=== PATIENT | male | born 1965 | race African-American/Black ===

== ENCOUNTER 2022-02-11 20:42 | Inpatient (IN) | payer MEDICARE, MEDICAID ==
[~2022-02-11 20:42] MED LIST: Iopamidol-370 76% 500 ML 1 ML ONE
[2022-02-11] MEDS ORDERED: Rocuronium Bromide 10 MG/ML (10ML VIAL) ONE ×3 (20:45→22:26)
[2022-02-11] MEDS ORDERED: Midazolam HCl 5 mg/ml Vial ONE (20:45)
[2022-02-11 21:00] LABS: Hemoglobin 12.9 g/dL (14.0-18.0); Mean Corpuscular HGB CONC 33.2 g/dL (32.0-36.0); Mean Corpuscular Hemoglobin 35.7 pg (27.0-31.0); Mean Platelet Volume 10.7 fL (7.4-10.4); Platelet Count 169 thou/uL (130-400); RBC Distribution Width 15.8 % (11.5-14.5)
[2022-02-11 21:07] LABS: Prothrombin Time 13.2 sec (12.0-14.7)
[2022-02-11 21:13] LABS: #Eosinphils 0.1 thou/uL (0.0-0.7); #Lymphocytes 1.9 thou/uL (1.20-3.40); #Monocytes 0.3 thou/uL (0.11-0.59); #Neutrophils 1.8 thou/uL (1.40-6.50); %Basophils 0.7 % (0.0-1.0); %Eosinophils 1.4 % (0.0-10.0); %Lymphocytes 45.7 % (21.0-51.0); %Monocytes 8.1 % (0.0-10.0); %Neutrophils 44.1 % (42.0-75.0); Large Platelets SLIGHT; MDiff Complete? YES; Macrocytosis SLIGHT = 6-15 cells (100X) (0-5/hpf); Platelet Morphology Comment Appears Adequate
[2022-02-11 21:21] LABS: Lactic Acid 3.1 mmol/L (0.5-2.2)
[2022-02-11 21:25] LABS: ALT (SGPT) 7 U/L (8-55); AST (SGOT) 18 U/L (5-34); Albumin 4.3 g/dL (3.5-5.0); Alkaline Phosphatase 85 U/L (40-110); Anion Gap 16 mmol/L (10-20); BUN (Urea Nitrogen) 16 mg/dL (8.4-25.7); Bilirubin, Total 0.8 mg/dL (0.2-1.2); CK (CPK) 143 U/L (30-200); Calc. Creatinine Clearance 0 mL/min (70-130); Carbon Dioxide 25 mmol/L (22-29); Chloride 106 mmol/L (98-107); Globulin 4.6 g/dL (2.4-3.5); Glucose 109 mg/dL (70-105); Potassium 3.8 mmol/L (3.5-5.1); Protein, Total 8.9 g/dL (6.0-8.3); Sodium 143 mmol/L (136-145)
[2022-02-11 21:26] LABS: Acetaminophen Less than 10.0 mcg/mL (10.0-30.0); Alcohol Less than 10 mg/dL (Less than 10); Magnesium 1.7 mg/dL (1.6-2.6); Salicylate Less than 8.0 mg/dL (15.0-30.0)
[2022-02-11 21:27] LABS: Actual Bicarbonate (HCO3a) 23.5 mEq/L (22-28); Analyzer IN Cardio ER; Base Excess (BEa) 0.8 mEq/L (-2.0 to +3.0); CO2 Tension 31.6 mmHg (35.0-45.0); Calcium, Ionized (arterial) 1.18 mmol/L (1.12-1.30); Carboxyhemoglobin (COHb) 3.3 gm% (0.0-3.0); Hemoglobin (Hb) 12.7 g/dL (14.0-18.0); O2 Tension (PaO2), arterial 276.9 mmHg (80.0-100.0); Potassium - ABG Lab 3.23 mmol/L (3.70-5.30); pH, Arterial 7.49 (7.35-7.45)
[2022-02-11] MEDS ORDERED: Piperacillin/Tazobactam 3.375 GM VIAL ONE (21:27)
[2022-02-11 21:37] LABS: Puncture Site LRA
[2022-02-11] MEDS ORDERED: Heparin 10,000 UNITS/ 10 ML VIAL ONE (22:00)
[2022-02-11] MEDS ORDERED: ePHEDrine 50 MG/ML VIAL ONE (22:26)
[2022-02-11] MEDS ORDERED: PHENYLEPHRINE-NS 100 MCG/ML 10 ML SYRINGE ONE (22:26)
[2022-02-11] MEDS ORDERED: niCARdipine 25 MG in Sodium Chloride 0.9% 250 ML 250 ML IVPB PRN (22:37)
[2022-02-11] MEDS ORDERED: Mag-Al 1200 mg/1200 mg/30 ML UDCUP PO PRN (22:37)
[2022-02-11] MEDS ORDERED: Norepinephrine 4 MG/4 ML VIAL ONE (22:48)
[2022-02-11] MEDS ORDERED: Electrolyte Replacement Protocol 1 EACH FS SCH (23:45)
[2022-02-12 00:14] LABS: Actual Bicarbonate (HCO3a) 18.6 mEq/L (22-28); Base Excess (BEa) -5.3 mEq/L (-2.0 to +3.0); CO2 Tension 31.7 mmHg (35.0-45.0); Hemoglobin (Hb) 12.9 g/dL (14.0-18.0); O2 Tension (PaO2), arterial 129.5 mmHg (80.0-100.0); Potassium - ABG Lab 3.16 mmol/L (3.70-5.30); pH, Arterial 7.39 (7.35-7.45)
[2022-02-12 00:15] LABS: Puncture Site Arterial Line
[2022-02-12 00:17] LABS: ALV-art Gradient 187.375 mmHg (0-20)
[2022-02-12 00:28] LABS: Hemoglobin 12.2 g/dL (14.0-18.0); Mean Corpuscular HGB CONC 32.5 g/dL (32.0-36.0); Mean Corpuscular Hemoglobin 35.4 pg (27.0-31.0); Platelet Count 134 thou/uL (130-400); RBC Distribution Width 15.9 % (11.5-14.5); Red Blood Cell (RBC) Count 3.45 mill/uL (4.70-6.10); White Blood Cell (WBC) Count 5.7 thou/uL (4.8-10.8)
[2022-02-12] MEDS: Sodium Chloride 0.9% 1,000 ML IV SCH ×2 (00:49→08:46)
[2022-02-12 01:03] LABS: #Lymphocytes 1.2 thou/uL (1.20-3.40); #Monocytes 0.3 thou/uL (0.11-0.59); #Neutrophils 4.2 thou/uL (1.40-6.50); %Basophils 0.3 % (0.0-1.0); %Eosinophils 0.8 % (0.0-10.0); %Lymphocytes 20.8 % (21.0-51.0); %Monocytes 4.6 % (0.0-10.0); %Neutrophils 73.5 % (42.0-75.0); Large Platelets SLIGHT; MDiff Complete? YES; Macrocytosis SLIGHT = 6-15 cells (100X) (0-5/hpf); Platelet Morphology Comment Appears Adequate
[2022-02-12 01:26] LABS: Anion Gap 14 mmol/L (10-20); BUN (Urea Nitrogen) 15 mg/dL (8.4-25.7); Calc. Creatinine Clearance 102 mL/min (70-130); Calcium 8.1 mg/dL (7.8-10.44); Carbon Dioxide 18 mmol/L (22-29); Chloride 111 mmol/L (98-107); Glucose 124 mg/dL (70-105); Potassium 3.2 mmol/L (3.5-5.1); Sodium 140 mmol/L (136-145)
[2022-02-12] MEDS ORDERED: Morphine 2 MG/ML VIAL SLOW IVP PRN (02:45)
[2022-02-12] MEDS ORDERED: DISCONTINUE PREVIOUS NARCOTIC PAIN MEDICATIONS AND BENZODIAZEPINES FS SCH (02:45)
[2022-02-12] MEDS ORDERED: Fentanyl BOLUS 250 ML IVPB PRN (02:45)
[2022-02-12] MEDS ORDERED: Propofol BOLUS 1,000 MG/100 ML VIAL IV PRN (02:45)
[2022-02-12] MEDS: fentaNYL Citrate-0.9 % NaCl/PF 100 ML IV SCH (02:58)
[2022-02-12] MEDS ORDERED: Electrolyte Replacement Protocol 1 EACH FS SCH (03:15)
[2022-02-12] MEDS: Communication Order-Pharmacy FS SCH ×2 (04:36→22:37)
[2022-02-12 05:08] LABS: Hemoglobin 11.6 g/dL (14.0-18.0); Mean Corpuscular HGB CONC 33.4 g/dL (32.0-36.0); Mean Corpuscular Hemoglobin 35.9 pg (27.0-31.0); Mean Platelet Volume 10.9 fL (7.4-10.4); Platelet Count 139 thou/uL (130-400); RBC Distribution Width 15.8 % (11.5-14.5); Red Blood Cell (RBC) Count 3.24 mill/uL (4.70-6.10); White Blood Cell (WBC) Count 4.6 thou/uL (4.8-10.8)
[2022-02-12] MEDS ORDERED: Magnesium 2 GM/50 ML(in water) 2 GM in Premix Bag 1 BAG IVPB SCH (05:30)
[2022-02-12 05:37] LABS: Cardiac Risk 2.3 (Less than 4.5)
[2022-02-12 05:50] LABS: Large Platelets SLIGHT; MDiff Complete? YES; Macrocytosis SLIGHT = 6-15 cells (100X) (0-5/hpf); Platelet Morphology Comment Appears Adequate
[2022-02-12 05:51] LABS: #Lymphocytes 0.9 thou/uL (1.20-3.40); #Monocytes 0.3 thou/uL (0.11-0.59); #Neutrophils 3.4 thou/uL (1.40-6.50); %Basophils 0.2 % (0.0-1.0); %Eosinophils 0.3 % (0.0-10.0); %Lymphocytes 20.1 % (21.0-51.0); %Monocytes 5.6 % (0.0-10.0); %Neutrophils 73.9 % (42.0-75.0)
[2022-02-12 06:09] LABS: SARS-CoV-2 NAA Rapid Test Not Detected (NotDetected)
[2022-02-12] MEDS: Potassium Chloride 20 MEQ in Premix Bag 1 BAG IVPB SCH ×2 (06:10→08:45)
[2022-02-12] MEDS: Famotidine/PF 20 mg/2ml Vial SLOW IVP SCH ×2 (08:45→21:00)
[2022-02-12] MEDS ORDERED: Enoxaparin Sodium 30 MG/0.3 ML SYRINGE SC SCH (09:00)
[2022-02-12] MEDS ORDERED: Electrolyte Replacement Protocol FS PRN (16:30)
[2022-02-12] MEDS: Labetalol HCl 100 MG/20 ML VIAL SLOW IVP PRN (17:28)
[2022-02-12] MEDS ORDERED: Atorvastatin Calcium 40 MG TAB PO SCH (21:00)
[2022-02-12] MEDS: hydrALAZINE 20 MG/ML VIAL SLOW IVP PRN (21:23)
[2022-02-13] MEDS: fentaNYL Citrate-0.9 % NaCl/PF 100 ML IV SCH (04:15)
[2022-02-13] MEDS: Sodium Chloride 0.9% 1,000 ML IV SCH ×3 (05:57→23:09)
[2022-02-13 07:30] LABS: Actual Bicarbonate (HCO3a) 21.7 mEq/L (22-28); Base Excess (BEa) -2.1 mEq/L (-2.0 to +3.0); CO2 Tension 33.7 mmHg (35.0-45.0); Calcium, Ionized (arterial) 1.11 mmol/L (1.12-1.30); Carboxyhemoglobin (COHb) 0.4 gm% (0.0-3.0); Hemoglobin (Hb) 11.3 g/dL (14.0-18.0); O2 Tension (PaO2), arterial 99.1 mmHg (80.0-100.0); Potassium - ABG Lab 3.49 mmol/L (3.70-5.30); pH, Arterial 7.43 (7.35-7.45)
[2022-02-13 07:33] LABS: ALV-art Gradient 143.975 mmHg (0-20); Puncture Site RRA
[2022-02-13] MEDS ORDERED: Aspirin 300 MG Suppository PR SCH (09:00)
[2022-02-13] MEDS ORDERED: Aspirin 325 mg Enteric Coated Tablet PO SCH (09:00)
[2022-02-13] MEDS: Atorvastatin Calcium 40 MG TAB PO SCH (09:47)
[2022-02-13] MEDS: Scopolamine 1.5 mg/72 hour Patch TD SCH (09:47)
[2022-02-13] MEDS: Famotidine/PF 20 mg/2ml Vial SLOW IVP SCH ×2 (09:47→20:22)
[2022-02-13] MEDS: Lopinavir/Ritonavir 200-50mg TAB PO SCH ×2 (09:48→20:23)
[2022-02-13] MEDS: Ezetimibe 10 MG TAB PO SCH (09:50)
[2022-02-13] MEDS: hydrALAZINE 20 MG/ML VIAL SLOW IVP PRN (13:05)
[2022-02-13] MEDS ORDERED: Potassium Chloride 20 MEQ in Premix Bag 1 BAG IVPB SCH (17:38)
[2022-02-13 18:12] LABS: ALT (SGPT) Less than 7 U/L (8-55); AST (SGOT) 24 U/L (5-34); Albumin 3.3 g/dL (3.5-5.0); Alkaline Phosphatase 66 U/L (40-110); Anion Gap 10 mmol/L (10-20); BUN (Urea Nitrogen) 8 mg/dL (8.4-25.7); Bilirubin, Total 0.8 mg/dL (0.2-1.2); Calc. Creatinine Clearance 85 mL/min (70-130); Calcium 8.3 mg/dL (7.8-10.44); Carbon Dioxide 22 mmol/L (22-29); Chloride 108 mmol/L (98-107); Globulin 3.9 g/dL (2.4-3.5); Glucose 95 mg/dL (70-105); Magnesium 1.7 mg/dL (1.6-2.6); Potassium 3.6 mmol/L (3.5-5.1); Protein, Total 7.2 g/dL (6.0-8.3); Sodium 136 mmol/L (136-145)
[2022-02-13] MEDS: Acetaminophen 325 MG TAB PO PRN (18:15)
[2022-02-13] MEDS: Communication Order-Pharmacy FS SCH (20:25)
[2022-02-14] MEDS: Acetaminophen 325 MG TAB PO PRN (02:49)
[2022-02-14] MEDS: hydrALAZINE 20 MG/ML VIAL SLOW IVP PRN ×2 (02:50→08:05)
[2022-02-14 03:35] LABS: #Lymphocytes 1.1 thou/uL (1.20-3.40); #Monocytes 0.5 thou/uL (0.11-0.59); #Neutrophils 4.2 thou/uL (1.40-6.50); %Basophils 0.2 % (0.0-1.0); %Eosinophils 0.7 % (0.0-10.0); %Lymphocytes 19.1 % (21.0-51.0); %Monocytes 7.7 % (0.0-10.0); %Neutrophils 72.3 % (42.0-75.0); Hemoglobin 11.5 g/dL (14.0-18.0); Mean Corpuscular HGB CONC 32.6 g/dL (32.0-36.0); Mean Platelet Volume 10.6 fL (7.4-10.4); Platelet Count 125 thou/uL (130-400); RBC Distribution Width 15.8 % (11.5-14.5); Red Blood Cell (RBC) Count 3.28 mill/uL (4.70-6.10); White Blood Cell (WBC) Count 5.8 thou/uL (4.8-10.8)
[2022-02-14 03:54] LABS: Anion Gap 14 mmol/L (10-20); BUN (Urea Nitrogen) 7 mg/dL (8.4-25.7); Calc. Creatinine Clearance 107 mL/min (70-130); Calcium 8.4 mg/dL (7.8-10.44); Carbon Dioxide 18 mmol/L (22-29); Chloride 109 mmol/L (98-107); Glucose 103 mg/dL (70-105); Potassium 3.6 mmol/L (3.5-5.1); Sodium 137 mmol/L (136-145)
[2022-02-14 07:48] LABS: Actual Bicarbonate (HCO3a) 20.5 mEq/L (22-28); Base Excess (BEa) -3.3 mEq/L (-2.0 to +3.0); CO2 Tension 33.6 mmHg (35.0-45.0); O2 Tension (PaO2), arterial 147.7 mmHg (80.0-100.0)
[2022-02-14 07:49] LABS: Calcium, Ionized (arterial) 1.16 mmol/L (1.12-1.30); Hemoglobin (Hb) 13.9 g/dL (14.0-18.0); Potassium - ABG Lab 3.68 mmol/L (3.70-5.30); Puncture Site RRA
[2022-02-14] MEDS: Amlodipine 10 MG TAB PO SCH (08:05)
[2022-02-14] MEDS: Ezetimibe 10 MG TAB PO SCH (08:05)
[2022-02-14] MEDS: Famotidine/PF 20 mg/2ml Vial SLOW IVP SCH ×2 (08:05→21:11)
[2022-02-14] MEDS: Atorvastatin Calcium 40 MG TAB PO SCH (08:05)
[2022-02-14] MEDS: Sodium Chloride 0.9% 1,000 ML IV SCH (08:09)
[2022-02-15 01:15] LABS: Anion Gap 13 mmol/L (10-20); BUN (Urea Nitrogen) 9 mg/dL (8.4-25.7); Calc. Creatinine Clearance 114 mL/min (70-130); Calcium 8.4 mg/dL (7.8-10.44); Carbon Dioxide 17 mmol/L (22-29); Chloride 110 mmol/L (98-107); Glucose 127 mg/dL (70-105); Potassium 4.3 mmol/L (3.5-5.1); Sodium 136 mmol/L (136-145)
[2022-02-15 01:25] LABS: Magnesium 1.9 mg/dL (1.6-2.6)
[2022-02-15] MEDS ORDERED: Magnesium 2 GM/50 ML(in water) 2 GM in Premix Bag 1 BAG IVPB SCH ×2 (02:00→19:45)
[2022-02-15 02:06] LABS: #Monocytes 0.5 thou/uL (0.11-0.59); %Basophils 0.1 % (0.0-1.0); %Eosinophils 0.5 % (0.0-10.0); %Monocytes 9.5 % (0.0-10.0); %Neutrophils 71.9 % (42.0-75.0); Hemoglobin 11.8 g/dL (14.0-18.0); Mean Corpuscular HGB CONC 32.5 g/dL (32.0-36.0); Mean Corpuscular Hemoglobin 34.9 pg (27.0-31.0); Mean Platelet Volume 10.8 fL (7.4-10.4); Platelet Count 125 thou/uL (130-400); RBC Distribution Width 15.9 % (11.5-14.5); Red Blood Cell (RBC) Count 3.38 mill/uL (4.70-6.10); White Blood Cell (WBC) Count 5.6 thou/uL (4.8-10.8)
[2022-02-15] MEDS: fentaNYL Citrate-0.9 % NaCl/PF 100 ML IV SCH ×2 (04:12→19:57)
[2022-02-15 06:57] LABS: Actual Bicarbonate (HCO3a) 22.2 mEq/L (22-28); Base Excess (BEa) -2.1 mEq/L (-2.0 to +3.0); CO2 Tension 36.9 mmHg (35.0-45.0); Calcium, Ionized (arterial) 1.19 mmol/L (1.12-1.30); Carboxyhemoglobin (COHb) 0.2 gm% (0.0-3.0); Hemoglobin (Hb) 12.6 g/dL (14.0-18.0); O2 Tension (PaO2), arterial 112.9 mmHg (80.0-100.0); Potassium - ABG Lab 3.64 mmol/L (3.70-5.30)
[2022-02-15 07:26] LABS: ALV-art Gradient 126.175 mmHg (0-20); Puncture Site RRA
[2022-02-15] MEDS: Amlodipine 10 MG TAB PO SCH (08:38)
[2022-02-15] MEDS: Ezetimibe 10 MG TAB PO SCH (08:38)
[2022-02-15] MEDS: Atorvastatin Calcium 40 MG TAB PO SCH (08:38)
[2022-02-15] MEDS: Famotidine/PF 20 mg/2ml Vial SLOW IVP SCH ×2 (08:38→20:12)
[2022-02-15] MEDS: Sodium Chloride 0.9% 1,000 ML IV SCH ×3 (08:39→21:00)
[2022-02-15] MEDS ORDERED: Prevnar 13-Val Conj/PF 0.5 ML SYRINGE IM ONE (09:00)
[2022-02-15] MEDS ORDERED: methylPREDNISolone Sod Succ/PF 125 MG/2 ML VIAL IVP SCH (11:15)
[2022-02-15] MEDS ORDERED: diphenhydrAMINE 50 MG/ML VIAL IVP SCH (11:15)
[2022-02-15 18:14] LABS: Potassium 4.3 mmol/L (3.5-5.1)
[2022-02-15] MEDS: Metoprolol Tartrate 25 MG TAB PO SCH (20:12)
[2022-02-16 04:50] LABS: Magnesium 2.2 mg/dL (1.6-2.6)
[2022-02-16 07:09] LABS: Actual Bicarbonate (HCO3a) 23.5 mEq/L (22-28); Base Excess (BEa) -1.2 mEq/L (-2.0 to +3.0); CO2 Tension 39.4 mmHg (35.0-45.0); Carboxyhemoglobin (COHb) 0.3 gm% (0.0-3.0); Hemoglobin (Hb) 13.5 g/dL (14.0-18.0); O2 Tension (PaO2), arterial 97.3 mmHg (80.0-100.0); Potassium - ABG Lab 4.49 mmol/L (3.70-5.30); pH, Arterial 7.39 (7.35-7.45)
[2022-02-16 07:12] LABS: Puncture Site RRA
[2022-02-16] MEDS ORDERED: Cetirizine HCl 10 MG TAB PO SCH (09:00)
[2022-02-16] MEDS ORDERED: methylPREDNISolone Sod Succ 40 MG VIAL IVP SCH (09:00)
[2022-02-16] MEDS: Scopolamine 1.5 mg/72 hour Patch TD SCH (09:00)
[2022-02-16] MEDS: Amlodipine 10 MG TAB PO SCH (09:01)
[2022-02-16] MEDS: Magnesium Oxide 400 MG TAB PO SCH (09:01)
[2022-02-16] MEDS: Famotidine/PF 20 mg/2ml Vial SLOW IVP SCH (09:01)
[2022-02-16] MEDS: Ezetimibe 10 MG TAB PO SCH (09:01)
[2022-02-16] MEDS: Metoprolol Tartrate 25 MG TAB PO SCH (09:01)
[2022-02-16] MEDS: Atorvastatin Calcium 40 MG TAB PO SCH (09:01)
[2022-02-16] MEDS: Aspirin Chewable 81 MG TAB PER TUBE SCH (09:01)
[2022-02-16] MEDS: fentaNYL Citrate-0.9 % NaCl/PF 100 ML IV SCH (14:18)
[2022-02-16] MEDS: Sodium Chloride 0.9% 1,000 ML IV SCH (14:24)
[2022-02-16] MEDS: Labetalol HCl 100 MG/20 ML VIAL SLOW IVP PRN (15:04)
[2022-02-16 16:17] LABS: %CD4 (Helper/Inducer) 24.1 % (30.8-58.5); Absolute CD4 217 /uL (359-1519); Lymphocytes/Gated Cell Count 0.9 x10E3/uL (0.7-3.1); Total Lymphocyte 18 % (Not Estab.); WBC Total Count 5.1 x10E3/uL (3.4-10.8)
[2022-02-16] MEDS: Metoprolol Tartrate 50 MG TAB PO SCH (20:30)
[2022-02-16] MEDS: Famotidine 20 MG TAB PO SCH (20:30)
[2022-02-16] MEDS ORDERED: Loratadine 10 MG TAB PO SCH (21:00)
[2022-02-17 04:07] LABS: #Lymphocytes 1.5 thou/uL (1.20-3.40); #Monocytes 0.9 thou/uL (0.11-0.59); #Neutrophils 4.2 thou/uL (1.40-6.50); %Basophils 0.3 % (0.0-1.0); %Eosinophils 0.2 % (0.0-10.0); %Lymphocytes 22.3 % (21.0-51.0); %Neutrophils 64.1 % (42.0-75.0); Hemoglobin 11.4 g/dL (14.0-18.0); Mean Corpuscular HGB CONC 33.1 g/dL (32.0-36.0); Mean Corpuscular Hemoglobin 35.7 pg (27.0-31.0); Platelet Count 113 thou/uL (130-400); RBC Distribution Width 15.9 % (11.5-14.5); White Blood Cell (WBC) Count 6.5 thou/uL (4.8-10.8)
[2022-02-17 04:25] LABS: Anion Gap 11 mmol/L (10-20); BUN (Urea Nitrogen) 16 mg/dL (8.4-25.7); Calc. Creatinine Clearance 111 mL/min (70-130); Calcium 8.2 mg/dL (7.8-10.44); Carbon Dioxide 21 mmol/L (22-29); Chloride 108 mmol/L (98-107); Glucose 113 mg/dL (70-105); Magnesium 2.1 mg/dL (1.6-2.6); Potassium 4.4 mmol/L (3.5-5.1); Sodium 136 mmol/L (136-145)
[2022-02-17 07:23] LABS: Actual Bicarbonate (HCO3a) 25.7 mEq/L (22-28); Base Excess (BEa) 1.7 mEq/L (-2.0 to +3.0); Calcium, Ionized (arterial) 1.17 mmol/L (1.12-1.30); Carboxyhemoglobin (COHb) 0.3 gm% (0.0-3.0); Hemoglobin (Hb) 10.7 g/dL (14.0-18.0); O2 Tension (PaO2), arterial 112.3 mmHg (80.0-100.0); pH, Arterial 7.45 (7.35-7.45)
[2022-02-17 07:24] LABS: Puncture Site RRA
[2022-02-17] MEDS: Aspirin Chewable 81 MG TAB PER TUBE SCH (09:36)
[2022-02-17] MEDS: Metoprolol Tartrate 50 MG TAB PO SCH ×2 (09:36→21:00)
[2022-02-17] MEDS: Famotidine 20 MG TAB PO SCH ×2 (09:36→21:00)
[2022-02-17] MEDS: Magnesium Oxide 400 MG TAB PO SCH (09:36)
[2022-02-17] MEDS: Ezetimibe 10 MG TAB PO SCH (09:37)
[2022-02-17] MEDS: Enoxaparin Sodium 40 MG/0.4 ML SYRINGE SC SCH (09:37)
[2022-02-17] MEDS: Amlodipine 10 MG TAB PO SCH (09:37)
[2022-02-17] MEDS: fentaNYL Citrate-0.9 % NaCl/PF 100 ML IV SCH (09:43)
[2022-02-17] MEDS: Atorvastatin Calcium 40 MG TAB PO SCH (09:52)
[2022-02-17] MEDS: Sodium Chloride 0.9% 1,000 ML IV SCH (13:03)
[2022-02-17 21:37] LABS: LOG10 HIV-1 RNA 2.505 (.)
[2022-02-18] MEDS: fentaNYL Citrate-0.9 % NaCl/PF 100 ML IV SCH ×2 (02:25→18:55)
[2022-02-18 04:32] LABS: #Eosinphils 0.1 thou/uL (0.0-0.7); #Lymphocytes 1.4 thou/uL (1.20-3.40); #Monocytes 0.5 thou/uL (0.11-0.59); #Neutrophils 2.7 thou/uL (1.40-6.50); %Basophils 0.8 % (0.0-1.0); %Eosinophils 2.1 % (0.0-10.0); %Lymphocytes 29.1 % (21.0-51.0); %Monocytes 11.1 % (0.0-10.0); %Neutrophils 56.9 % (42.0-75.0); Hemoglobin 11.1 g/dL (14.0-18.0); Mean Corpuscular HGB CONC 32.4 g/dL (32.0-36.0); Mean Corpuscular Hemoglobin 35.1 pg (27.0-31.0); Mean Platelet Volume 10.5 fL (7.4-10.4); Platelet Count 159 thou/uL (130-400); Red Blood Cell (RBC) Count 3.17 mill/uL (4.70-6.10); White Blood Cell (WBC) Count 4.7 thou/uL (4.8-10.8)
[2022-02-18 04:33] LABS: Anion Gap 11 mmol/L (10-20); BUN (Urea Nitrogen) 13 mg/dL (8.4-25.7); Calc. Creatinine Clearance 109 mL/min (70-130); Calcium 8.4 mg/dL (7.8-10.44); Carbon Dioxide 25 mmol/L (22-29); Chloride 105 mmol/L (98-107); Glucose 125 mg/dL (70-105); Potassium 3.5 mmol/L (3.5-5.1); Sodium 137 mmol/L (136-145)
[2022-02-18] MEDS ORDERED: Potassium Bicarbonate/Cit Ac 20 MEQ TAB PER TUBE SCH (05:45)
[2022-02-18 07:33] LABS: Actual Bicarbonate (HCO3a) 25.5 mEq/L (22-28); Base Excess (BEa) 1.1 mEq/L (-2.0 to +3.0); CO2 Tension 39.6 mmHg (35.0-45.0); Calcium, Ionized (arterial) 1.16 mmol/L (1.12-1.30); Carboxyhemoglobin (COHb) 0.2 gm% (0.0-3.0); Hemoglobin (Hb) 11.9 g/dL (14.0-18.0); O2 Tension (PaO2), arterial 100.7 mmHg (80.0-100.0); Potassium - ABG Lab 3.65 mmol/L (3.70-5.30); pH, Arterial 7.43 (7.35-7.45)
[2022-02-18 07:34] LABS: Puncture Site RBA
[2022-02-18] MEDS: Famotidine 20 MG TAB PO SCH ×2 (08:27→20:39)
[2022-02-18] MEDS: Metoprolol Tartrate 50 MG TAB PO SCH ×2 (08:27→20:39)
[2022-02-18] MEDS: Ezetimibe 10 MG TAB PO SCH (08:27)
[2022-02-18] MEDS: Enoxaparin Sodium 40 MG/0.4 ML SYRINGE SC SCH (08:27)
[2022-02-18] MEDS: Aspirin Chewable 81 MG TAB PER TUBE SCH (08:27)
[2022-02-18] MEDS: Magnesium Oxide 400 MG TAB PO SCH (08:27)
[2022-02-18] MEDS: Atorvastatin Calcium 40 MG TAB PO SCH (08:27)
[2022-02-18] MEDS ORDERED: Fleet Enema 133 ML BOT PR SCH (09:00)
[2022-02-18] MEDS: Lorazepam 2 MG/ML VIAL SLOW IVP PRN (10:21)
[2022-02-18] MEDS: Propofol 1,000 MG/100 ML VIAL IV PRN ×2 (10:28→18:36)
[2022-02-18] MEDS: Bisacodyl 10 MG SUPP PR SCH ×2 (14:36→23:55)
[2022-02-18] MEDS: Sodium Chloride 0.9% 1,000 ML IV SCH (14:36)
[2022-02-18] MEDS: Acetaminophen 325 MG TAB PO PRN (20:40)
[2022-02-18] MEDS: Senokot S 8.6-50 MG TAB PO SCH (20:40)
[2022-02-19 00:32] LABS: SARS-CoV-2 PCR by NAA Not Detected (NotDetected)
[2022-02-19] MEDS: Propofol 1,000 MG/100 ML VIAL IV PRN ×3 (03:35→21:30)
[2022-02-19 04:01] LABS: Anion Gap 13 mmol/L (10-20); BUN (Urea Nitrogen) 14 mg/dL (8.4-25.7); Calc. Creatinine Clearance 99 mL/min (70-130); Calcium 8.5 mg/dL (7.8-10.44); Carbon Dioxide 26 mmol/L (22-29); Chloride 102 mmol/L (98-107); Glucose 86 mg/dL (70-105); Potassium 3.6 mmol/L (3.5-5.1); Sodium 137 mmol/L (136-145)
[2022-02-19 04:11] LABS: #Eosinphils 0.1 thou/uL (0.0-0.7); #Lymphocytes 1.2 thou/uL (1.20-3.40); #Monocytes 0.4 thou/uL (0.11-0.59); #Neutrophils 2.1 thou/uL (1.40-6.50); %Basophils 0.8 % (0.0-1.0); %Eosinophils 1.3 % (0.0-10.0); %Lymphocytes 32.8 % (21.0-51.0); %Monocytes 9.5 % (0.0-10.0); %Neutrophils 55.6 % (42.0-75.0); Hemoglobin 12.5 g/dL (14.0-18.0); Mean Corpuscular HGB CONC 33.1 g/dL (32.0-36.0); Mean Corpuscular Hemoglobin 35.8 pg (27.0-31.0); Mean Platelet Volume 10.8 fL (7.4-10.4); Platelet Count 135 thou/uL (130-400); RBC Distribution Width 15.7 % (11.5-14.5); Red Blood Cell (RBC) Count 3.48 mill/uL (4.70-6.10); White Blood Cell (WBC) Count 3.8 thou/uL (4.8-10.8)
[2022-02-19 07:14] LABS: Actual Bicarbonate (HCO3a) 24.8 mEq/L (22-28); Base Excess (BEa) 1.8 mEq/L (-2.0 to +3.0); CO2 Tension 33.4 mmHg (35.0-45.0); Calcium, Ionized (arterial) 1.16 mmol/L (1.12-1.30); Carboxyhemoglobin (COHb) 0.3 gm% (0.0-3.0); Hemoglobin (Hb) 11.7 g/dL (14.0-18.0); O2 Tension (PaO2), arterial 94.6 mmHg (80.0-100.0); Potassium - ABG Lab 3.37 mmol/L (3.70-5.30); pH, Arterial 7.49 (7.35-7.45)
[2022-02-19 07:19] LABS: Puncture Site RRA
[2022-02-19] MEDS: Bisacodyl 10 MG SUPP PR SCH (08:07)
[2022-02-19] MEDS: Atorvastatin Calcium 40 MG TAB PO SCH (08:34)
[2022-02-19] MEDS: Scopolamine 1.5 mg/72 hour Patch TD SCH (08:34)
[2022-02-19] MEDS: Aspirin Chewable 81 MG TAB PER TUBE SCH (08:35)
[2022-02-19] MEDS: Ezetimibe 10 MG TAB PO SCH (08:35)
[2022-02-19] MEDS: Famotidine 20 MG TAB PO SCH ×2 (08:36→20:23)
[2022-02-19] MEDS: Enoxaparin Sodium 40 MG/0.4 ML SYRINGE SC SCH (08:36)
[2022-02-19] MEDS: Magnesium Oxide 400 MG TAB PO SCH (08:36)
[2022-02-19] MEDS: Metoprolol Tartrate 50 MG TAB PO SCH ×2 (08:37→20:23)
[2022-02-19] MEDS: Senokot S 8.6-50 MG TAB PO SCH ×2 (09:50→20:23)
[2022-02-19] MEDS: Polyethylene Glycol 3350 17 GM Packet PO SCH (12:36)
[2022-02-19] MEDS: Sodium Chloride 0.9% 1,000 ML IV SCH (16:27)
[2022-02-19] MEDS: fentaNYL Citrate-0.9 % NaCl/PF 100 ML IV SCH (16:54)
[2022-02-20] MEDS: Sodium Chloride 0.9% 1,000 ML IV SCH ×2 (05:55→21:34)
[2022-02-20] MEDS: Propofol 1,000 MG/100 ML VIAL IV PRN ×3 (05:55→21:31)
[2022-02-20 06:16] LABS: Anion Gap 10 mmol/L (10-20); BUN (Urea Nitrogen) 12 mg/dL (8.4-25.7); Calc. Creatinine Clearance 101 mL/min (70-130); Calcium 8.2 mg/dL (7.8-10.44); Carbon Dioxide 27 mmol/L (22-29); Chloride 102 mmol/L (98-107); Glucose 79 mg/dL (70-105); Potassium 3.8 mmol/L (3.5-5.1); Sodium 135 mmol/L (136-145)
[2022-02-20 06:21] LABS: #Eosinphils 0.1 thou/uL (0.0-0.7); #Lymphocytes 1.2 thou/uL (1.20-3.40); #Monocytes 0.5 thou/uL (0.11-0.59); #Neutrophils 2.4 thou/uL (1.40-6.50); %Basophils 0.9 % (0.0-1.0); %Eosinophils 1.9 % (0.0-10.0); %Lymphocytes 27.7 % (21.0-51.0); %Monocytes 12.3 % (0.0-10.0); %Neutrophils 57.1 % (42.0-75.0); Hemoglobin 10.6 g/dL (14.0-18.0); Large Platelets SLIGHT; MDiff Complete? YES; Mean Corpuscular HGB CONC 32.4 g/dL (32.0-36.0); Mean Corpuscular Hemoglobin 35.1 pg (27.0-31.0); Mean Platelet Volume 9.6 fL (7.4-10.4); Platelet Count 164 thou/uL (130-400); Platelet Morphology Comment Appears Adequate; RBC Distribution Width 15.9 % (11.5-14.5); Red Blood Cell (RBC) Count 3.01 mill/uL (4.70-6.10); White Blood Cell (WBC) Count 4.2 thou/uL (4.8-10.8)
[2022-02-20] MEDS: Metoprolol Tartrate 50 MG TAB PO SCH ×2 (09:42→21:32)
[2022-02-20] MEDS: Atorvastatin Calcium 40 MG TAB PO SCH (09:42)
[2022-02-20] MEDS: Senokot S 8.6-50 MG TAB PO SCH ×3 (09:42→21:33)
[2022-02-20] MEDS: Enoxaparin Sodium 40 MG/0.4 ML SYRINGE SC SCH (09:43)
[2022-02-20] MEDS: Magnesium Oxide 400 MG TAB PO SCH (09:43)
[2022-02-20] MEDS: Polyethylene Glycol 3350 17 GM Packet PO SCH (09:43)
[2022-02-20] MEDS: Famotidine 20 MG TAB PO SCH ×2 (09:43→21:32)
[2022-02-20] MEDS: Ezetimibe 10 MG TAB PO SCH (09:43)
[2022-02-20] MEDS: Aspirin Chewable 81 MG TAB PER TUBE SCH (09:43)
[2022-02-21] MEDS: fentaNYL Citrate-0.9 % NaCl/PF 100 ML IV SCH ×2 (00:05→21:32)
[2022-02-21 04:13] LABS: #Eosinphils 0.1 thou/uL (0.0-0.7); #Monocytes 0.4 thou/uL (0.11-0.59); #Neutrophils 2.2 thou/uL (1.40-6.50); %Basophils 0.1 % (0.0-1.0); %Lymphocytes 25.9 % (21.0-51.0); %Monocytes 12.1 % (0.0-10.0); %Neutrophils 59.9 % (42.0-75.0); Hemoglobin 10.2 g/dL (14.0-18.0); Mean Corpuscular HGB CONC 32.7 g/dL (32.0-36.0); Mean Corpuscular Hemoglobin 34.9 pg (27.0-31.0); Mean Platelet Volume 9.8 fL (7.4-10.4); Platelet Count 179 thou/uL (130-400); RBC Distribution Width 15.5 % (11.5-14.5); Red Blood Cell (RBC) Count 2.92 mill/uL (4.70-6.10); White Blood Cell (WBC) Count 3.7 thou/uL (4.8-10.8)
[2022-02-21 04:29] LABS: Anion Gap 15 mmol/L (10-20); BUN (Urea Nitrogen) 9 mg/dL (8.4-25.7); Calc. Creatinine Clearance 109 mL/min (70-130); Calcium 8.3 mg/dL (7.8-10.44); Carbon Dioxide 23 mmol/L (22-29); Chloride 103 mmol/L (98-107); Glucose 79 mg/dL (70-105); Potassium 3.8 mmol/L (3.5-5.1); Sodium 137 mmol/L (136-145)
[2022-02-21] MEDS: Propofol 1,000 MG/100 ML VIAL IV PRN ×3 (04:33→20:47)
[2022-02-21] MEDS: Senokot S 8.6-50 MG TAB PO SCH ×2 (08:14→20:48)
[2022-02-21] MEDS: Polyethylene Glycol 3350 17 GM Packet PO SCH (08:14)
[2022-02-21] MEDS: Ezetimibe 10 MG TAB PO SCH (08:51)
[2022-02-21] MEDS: Famotidine 20 MG TAB PO SCH ×2 (08:51→20:47)
[2022-02-21] MEDS: Metoprolol Tartrate 50 MG TAB PO SCH ×2 (08:51→20:47)
[2022-02-21] MEDS: Enoxaparin Sodium 40 MG/0.4 ML SYRINGE SC SCH (08:51)
[2022-02-21] MEDS: Atorvastatin Calcium 40 MG TAB PO SCH (08:51)
[2022-02-21] MEDS: Magnesium Oxide 400 MG TAB PO SCH (08:51)
[2022-02-21] MEDS: Aspirin Chewable 81 MG TAB PER TUBE SCH (08:51)
[2022-02-21] MEDS: Sodium Chloride 0.9% 1,000 ML IV SCH (13:52)
[2022-02-22] MEDS: Lorazepam 2 MG/ML VIAL SLOW IVP PRN (02:10)
[2022-02-22 03:55] LABS: Anion Gap 14 mmol/L (10-20); BUN (Urea Nitrogen) 8 mg/dL (8.4-25.7); Calc. Creatinine Clearance 101 mL/min (70-130); Calcium 8.5 mg/dL (7.8-10.44); Carbon Dioxide 25 mmol/L (22-29); Chloride 104 mmol/L (98-107); Glucose 96 mg/dL (70-105); Potassium 3.4 mmol/L (3.5-5.1); Sodium 140 mmol/L (136-145)
[2022-02-22 03:56] LABS: #Eosinphils 0.1 thou/uL (0.0-0.7); #Lymphocytes 1.2 thou/uL (1.20-3.40); #Monocytes 0.6 thou/uL (0.11-0.59); %Basophils 0.5 % (0.0-1.0); %Eosinophils 1.7 % (0.0-10.0); %Lymphocytes 31.4 % (21.0-51.0); %Monocytes 14.6 % (0.0-10.0); %Neutrophils 51.9 % (42.0-75.0); Hemoglobin 10.1 g/dL (14.0-18.0); Large Platelets SLIGHT; MDiff Complete? YES; Mean Corpuscular HGB CONC 33.4 g/dL (32.0-36.0); Mean Corpuscular Hemoglobin 35.4 pg (27.0-31.0); Mean Platelet Volume 9.8 fL (7.4-10.4); Platelet Count 184 thou/uL (130-400); Platelet Morphology Comment Appears Adequate; RBC Distribution Width 15.4 % (11.5-14.5); Red Blood Cell (RBC) Count 2.87 mill/uL (4.70-6.10); White Blood Cell (WBC) Count 3.9 thou/uL (4.8-10.8)
[2022-02-22] MEDS ORDERED: Potassium Bicarbonate/Cit Ac 20 MEQ TAB PER TUBE SCH (05:15)
[2022-02-22 07:01] LABS: Actual Bicarbonate (HCO3a) 26.4 mEq/L (22-28); Base Excess (BEa) 3.8 mEq/L (-2.0 to +3.0); CO2 Tension 32.6 mmHg (35.0-45.0); Calcium, Ionized (arterial) 1.12 mmol/L (1.12-1.30); Carboxyhemoglobin (COHb) 0.3 gm% (0.0-3.0); Hemoglobin (Hb) 9.8 g/dL (14.0-18.0); O2 Tension (PaO2), arterial 102.3 mmHg (80.0-100.0); Potassium - ABG Lab 3.48 mmol/L (3.70-5.30); pH, Arterial 7.53 (7.35-7.45)
[2022-02-22 07:06] LABS: Puncture Site RRA
[2022-02-22] MEDS ORDERED: Fentanyl BOLUS 250 ML IVPB PRN (08:08)
[2022-02-22] MEDS: Aspirin Chewable 81 MG TAB PER TUBE SCH (08:43)
[2022-02-22] MEDS: Famotidine 20 MG TAB PO SCH ×2 (08:43→20:32)
[2022-02-22] MEDS: Polyethylene Glycol 3350 17 GM Packet PO SCH (08:43)
[2022-02-22] MEDS: Enoxaparin Sodium 40 MG/0.4 ML SYRINGE SC SCH (08:43)
[2022-02-22] MEDS: Scopolamine 1.5 mg/72 hour Patch TD SCH (08:44)
[2022-02-22] MEDS: Senokot S 8.6-50 MG TAB PO SCH ×2 (08:44→20:32)
[2022-02-22] MEDS: Metoprolol Tartrate 50 MG TAB PO SCH ×2 (08:44→20:32)
[2022-02-22] MEDS: Atorvastatin Calcium 40 MG TAB PO SCH (08:44)
[2022-02-22] MEDS: Ezetimibe 10 MG TAB PO SCH (08:44)
[2022-02-22] MEDS: Magnesium Oxide 400 MG TAB PO SCH (08:45)
[2022-02-22] MEDS: Propofol 1,000 MG/100 ML VIAL IV PRN ×2 (08:55→17:03)
[2022-02-22] MEDS: Sodium Chloride 0.9% 1,000 ML IV SCH (14:21)
[2022-02-22] MEDS: fentaNYL Citrate-0.9 % NaCl/PF 100 ML IV SCH (14:33)
[2022-02-23] MEDS: Propofol 1,000 MG/100 ML VIAL IV PRN ×3 (01:34→20:26)
[2022-02-23] MEDS: Lorazepam 2 MG/ML VIAL SLOW IVP PRN ×2 (02:28→12:51)
[2022-02-23 03:55] LABS: Mean Corpuscular Hemoglobin 35.6 pg (27.0-31.0); Mean Platelet Volume 9.8 fL (7.4-10.4); Platelet Count 186 thou/uL (130-400); RBC Distribution Width 15.4 % (11.5-14.5); White Blood Cell (WBC) Count 4.6 thou/uL (4.8-10.8)
[2022-02-23 04:18] LABS: Anion Gap 12 mmol/L (10-20); BUN (Urea Nitrogen) 8 mg/dL (8.4-25.7); Calc. Creatinine Clearance 98 mL/min (70-130); Calcium 8.7 mg/dL (7.8-10.44); Carbon Dioxide 27 mmol/L (22-29); Chloride 104 mmol/L (98-107); Glucose 93 mg/dL (70-105); Potassium 3.9 mmol/L (3.5-5.1); Sodium 139 mmol/L (136-145)
[2022-02-23 04:27] LABS: Band 2 % (5-11); Eosinophils 4 % (0-10); Lymphocytes 32 % (21-51); MDiff Complete? YES; Monocytes 20 % (0-10); Neutrophil 42 % (42-75)
[2022-02-23 07:12] LABS: Actual Bicarbonate (HCO3a) 26.6 mEq/L (22-28); Base Excess (BEa) 3.6 mEq/L (-2.0 to +3.0); CO2 Tension 34.6 mmHg (35.0-45.0); Calcium, Ionized (arterial) 1.13 mmol/L (1.12-1.30); Carboxyhemoglobin (COHb) 0.3 gm% (0.0-3.0); Hemoglobin (Hb) 11.6 g/dL (14.0-18.0); Potassium - ABG Lab 3.72 mmol/L (3.70-5.30)
[2022-02-23 07:23] LABS: Puncture Site RRA
[2022-02-23] MEDS: Enoxaparin Sodium 40 MG/0.4 ML SYRINGE SC SCH (09:09)
[2022-02-23] MEDS: Famotidine 20 MG TAB PO SCH ×2 (09:11→20:26)
[2022-02-23] MEDS: Ezetimibe 10 MG TAB PO SCH (09:11)
[2022-02-23] MEDS: Magnesium Oxide 400 MG TAB PO SCH (09:11)
[2022-02-23] MEDS: Senokot S 8.6-50 MG TAB PO SCH ×2 (09:11→20:26)
[2022-02-23] MEDS: Atorvastatin Calcium 40 MG TAB PO SCH (09:12)
[2022-02-23] MEDS: Aspirin Chewable 81 MG TAB PER TUBE SCH (09:12)
[2022-02-23] MEDS: Polyethylene Glycol 3350 17 GM Packet PO SCH (09:15)
[2022-02-23] MEDS: Metoprolol Tartrate 50 MG TAB PO SCH ×2 (09:23→20:26)
[2022-02-23] MEDS: fentaNYL Citrate-0.9 % NaCl/PF 100 ML IV SCH (12:34)
[2022-02-23] MEDS: Sodium Chloride 0.9% 1,000 ML IV SCH (12:35)
[2022-02-24 06:35] LABS: #Eosinphils 0.1 thou/uL (0.0-0.7); #Lymphocytes 1.1 thou/uL (1.20-3.40); #Monocytes 0.5 thou/uL (0.11-0.59); #Neutrophils 2.3 thou/uL (1.40-6.50); %Basophils 0.6 % (0.0-1.0); %Lymphocytes 26.9 % (21.0-51.0); %Monocytes 12.4 % (0.0-10.0); %Neutrophils 57.1 % (42.0-75.0); Hemoglobin 10.5 g/dL (14.0-18.0); Mean Corpuscular HGB CONC 32.1 g/dL (32.0-36.0); Mean Corpuscular Hemoglobin 34.7 pg (27.0-31.0); Mean Platelet Volume 9.4 fL (7.4-10.4); Platelet Count 176 thou/uL (130-400); RBC Distribution Width 15.2 % (11.5-14.5); Red Blood Cell (RBC) Count 3.01 mill/uL (4.70-6.10); White Blood Cell (WBC) Count 4.1 thou/uL (4.8-10.8)
[2022-02-24 06:54] LABS: Anion Gap 12 mmol/L (10-20); BUN (Urea Nitrogen) 6 mg/dL (8.4-25.7); Calc. Creatinine Clearance 98 mL/min (70-130); Calcium 8.6 mg/dL (7.8-10.44); Carbon Dioxide 29 mmol/L (22-29); Chloride 102 mmol/L (98-107); Glucose 95 mg/dL (70-105); Sodium 139 mmol/L (136-145)
[2022-02-24] MEDS: Famotidine 20 MG TAB PO SCH ×2 (08:59→20:51)
[2022-02-24] MEDS: Senokot S 8.6-50 MG TAB PO SCH ×2 (08:59→20:51)
[2022-02-24] MEDS: Aspirin Chewable 81 MG TAB PER TUBE SCH (09:00)
[2022-02-24] MEDS: Enoxaparin Sodium 40 MG/0.4 ML SYRINGE SC SCH (09:00)
[2022-02-24] MEDS: Magnesium Oxide 400 MG TAB PO SCH (09:00)
[2022-02-24] MEDS: Polyethylene Glycol 3350 17 GM Packet PO SCH (09:00)
[2022-02-24] MEDS: Ezetimibe 10 MG TAB PO SCH (09:00)
[2022-02-24] MEDS: Atorvastatin Calcium 40 MG TAB PO SCH (09:00)
[2022-02-24] MEDS: Metoprolol Tartrate 50 MG TAB PO SCH ×2 (09:01→20:51)
[2022-02-24] MEDS: Sodium Chloride 0.9% 1,000 ML IV SCH (12:01)
[2022-02-24] MEDS: Propofol 1,000 MG/100 ML VIAL IV PRN ×2 (12:01→22:32)
[2022-02-24] MEDS ORDERED: Midazolam HCl 2 mg/2 ml Vial ONE (16:13)
[2022-02-24] MEDS ORDERED: Fentanyl 250 MCG/5 ML VIAL ONE (16:13)
[2022-02-24] MEDS ORDERED: Lidocaine 1% w/Epinephrine 1:100K 20 ML VIAL ONE (16:26)
[2022-02-24] MEDS ORDERED: Bupivacaine PF 0.5% 30 ML VIAL ONE (16:26)
[2022-02-24] MEDS: fentaNYL Citrate-0.9 % NaCl/PF 100 ML IV SCH (16:57)
[2022-02-24] MEDS ORDERED: Rocuronium Bromide 10 MG/ML (10ML VIAL) ONE (17:06)
[2022-02-24] MEDS ORDERED: Labetalol HCl 100 MG/20 ML VIAL ONE (17:06)
[2022-02-24] MEDS: Lorazepam 2 MG/ML VIAL SLOW IVP PRN ×2 (18:37→22:31)
[2022-02-24] MEDS: Acetaminophen 325 MG TAB PO PRN (22:31)
[2022-02-25] MEDS ORDERED: Piperacillin/Tazobactam 3.375 GM in Sodium Chloride 0.9% 100 ML IVPB SCH (03:30)
[2022-02-25] MEDS: Acetaminophen 325 MG TAB PO PRN ×2 (03:40→20:46)
[2022-02-25 04:16] LABS: #Lymphocytes 0.8 thou/uL (1.20-3.40); #Monocytes 0.5 thou/uL (0.11-0.59); #Neutrophils 6.9 thou/uL (1.40-6.50); %Basophils 0.4 % (0.0-1.0); %Eosinophils 0.4 % (0.0-10.0); %Lymphocytes 10.1 % (21.0-51.0); %Monocytes 6.1 % (0.0-10.0); Hemoglobin 11.5 g/dL (14.0-18.0); Mean Corpuscular HGB CONC 33.3 g/dL (32.0-36.0); Mean Corpuscular Hemoglobin 36.1 pg (27.0-31.0); Mean Platelet Volume 10.1 fL (7.4-10.4); Platelet Count 176 thou/uL (130-400); RBC Distribution Width 15.1 % (11.5-14.5); Red Blood Cell (RBC) Count 3.19 mill/uL (4.70-6.10); White Blood Cell (WBC) Count 8.4 thou/uL (4.8-10.8)
[2022-02-25 04:28] LABS: Lactic Acid 1.8 mmol/L (0.5-2.2)
[2022-02-25 04:35] LABS: ALT (SGPT) 22 U/L (8-55); AST (SGOT) 45 U/L (5-34); Albumin 3.1 g/dL (3.5-5.0); Alkaline Phosphatase 65 U/L (40-110); Anion Gap 14 mmol/L (10-20); BUN (Urea Nitrogen) 8 mg/dL (8.4-25.7); Bilirubin, Total 0.7 mg/dL (0.2-1.2); Calc. Creatinine Clearance 93 mL/min (70-130); Calcium 8.8 mg/dL (7.8-10.44); Carbon Dioxide 25 mmol/L (22-29); Chloride 99 mmol/L (98-107); Globulin 4.5 g/dL (2.4-3.5); Glucose 85 mg/dL (70-105); Potassium 4.2 mmol/L (3.5-5.1); Protein, Total 7.6 g/dL (6.0-8.3); Sodium 134 mmol/L (136-145)
[2022-02-25] MEDS: VANCOMYCIN 1.25 GM/250 ML BAG 1.25 GM in Premix Bag 1 BAG IVPB SCH ×2 (05:46→16:36)
[2022-02-25] MEDS: Propofol 1,000 MG/100 ML VIAL IV PRN ×2 (06:49→18:20)
[2022-02-25] MEDS: Ezetimibe 10 MG TAB PO SCH (09:36)
[2022-02-25] MEDS: Polyethylene Glycol 3350 17 GM Packet PO SCH (09:36)
[2022-02-25] MEDS: Scopolamine 1.5 mg/72 hour Patch TD SCH (09:36)
[2022-02-25] MEDS: Metoprolol Tartrate 50 MG TAB PO SCH ×2 (09:36→20:49)
[2022-02-25] MEDS: Aspirin Chewable 81 MG TAB PER TUBE SCH (09:36)
[2022-02-25] MEDS: Atorvastatin Calcium 40 MG TAB PO SCH (09:36)
[2022-02-25] MEDS: Magnesium Oxide 400 MG TAB PO SCH (09:36)
[2022-02-25] MEDS: Famotidine 20 MG TAB PO SCH ×2 (09:36→20:46)
[2022-02-25] MEDS: Senokot S 8.6-50 MG TAB PO SCH ×2 (09:38→20:46)
[2022-02-25] MEDS: Enoxaparin Sodium 40 MG/0.4 ML SYRINGE SC SCH (09:38)
[2022-02-25] MEDS: Piperacillin/Tazobactam 3.375 GM in Sodium Chloride 0.9% 100 ML IVPB SCH ×2 (09:38→17:18)
[2022-02-25] MEDS: fentaNYL Citrate-0.9 % NaCl/PF 100 ML IV SCH (10:27)
[2022-02-25 12:19] LABS: SARS-CoV-2 PCR by NAA Not Detected (NotDetected)
[2022-02-25] MEDS ORDERED: Dextrose 5% in Water 1,000 ML IV PRN (12:45)
[2022-02-25] MEDS ORDERED: Dextrose 50% Abboject 50 ML SYRINGE IVP PRN (12:45)
[2022-02-25] MEDS: Sodium Chloride 0.9% 1,000 ML IV SCH (14:27)
[2022-02-26] MEDS: Piperacillin/Tazobactam 3.375 GM in Sodium Chloride 0.9% 100 ML IVPB SCH (02:57)
[2022-02-26] MEDS: fentaNYL Citrate-0.9 % NaCl/PF 100 ML IV SCH ×2 (02:59→17:09)
[2022-02-26 04:35] LABS: #Eosinphils 0.1 thou/uL (0.0-0.7); #Lymphocytes 0.8 thou/uL (1.20-3.40); #Monocytes 0.9 thou/uL (0.11-0.59); #Neutrophils 6.7 thou/uL (1.40-6.50); %Basophils 0.2 % (0.0-1.0); %Lymphocytes 9.8 % (21.0-51.0); %Monocytes 10.8 % (0.0-10.0); %Neutrophils 78.3 % (42.0-75.0); Hemoglobin 8.2 g/dL (14.0-18.0); Mean Corpuscular HGB CONC 33.1 g/dL (32.0-36.0); Mean Corpuscular Hemoglobin 35.6 pg (27.0-31.0); Mean Platelet Volume 9.6 fL (7.4-10.4); Platelet Count 126 thou/uL (130-400); RBC Distribution Width 15.2 % (11.5-14.5); Red Blood Cell (RBC) Count 2.29 mill/uL (4.70-6.10); White Blood Cell (WBC) Count 8.5 thou/uL (4.8-10.8)
[2022-02-26 04:57] LABS: Anion Gap 22 mmol/L (10-20); BUN (Urea Nitrogen) 11 mg/dL (8.4-25.7); Calc. Creatinine Clearance 115 mL/min (70-130); Calcium 6.2 mg/dL (7.8-10.44); Carbon Dioxide 18 mmol/L (22-29); Chloride 110 mmol/L (98-107); Glucose 75 mg/dL (70-105); Potassium 3.1 mmol/L (3.5-5.1); Sodium 147 mmol/L (136-145)
[2022-02-26] MEDS: VANCOMYCIN 1.25 GM/250 ML BAG 1.25 GM in Premix Bag 1 BAG IVPB SCH ×2 (05:17→17:22)
[2022-02-26] MEDS: Propofol 1,000 MG/100 ML VIAL IV PRN ×2 (05:23→16:03)
[2022-02-26] MEDS: Acetaminophen 325 MG TAB PO PRN (06:16)
[2022-02-26] MEDS ORDERED: Potassium Chloride 20 MEQ TAB PO SCH (06:30)
[2022-02-26] MEDS ORDERED: Potassium Bicarbonate/Cit Ac 20 MEQ TAB PER TUBE SCH (06:45)
[2022-02-26] MEDS: Polyethylene Glycol 3350 17 GM Packet PO SCH (07:54)
[2022-02-26] MEDS: Aspirin Chewable 81 MG TAB PER TUBE SCH (07:55)
[2022-02-26] MEDS: Famotidine 20 MG TAB PO SCH ×2 (07:56→20:14)
[2022-02-26] MEDS: Ezetimibe 10 MG TAB PO SCH (07:56)
[2022-02-26] MEDS: Metoprolol Tartrate 50 MG TAB PO SCH ×2 (07:56→20:14)
[2022-02-26] MEDS: Senokot S 8.6-50 MG TAB PO SCH ×2 (07:56→20:12)
[2022-02-26] MEDS: Magnesium Oxide 400 MG TAB PO SCH (07:56)
[2022-02-26] MEDS: Atorvastatin Calcium 40 MG TAB PO SCH (07:56)
[2022-02-26] MEDS: Enoxaparin Sodium 40 MG/0.4 ML SYRINGE SC SCH (07:58)
[2022-02-26] MEDS ORDERED: Fleet Enema 133 ML BOT PR SCH (08:00)
[2022-02-26] MEDS ORDERED: Cefepime 1 GM in Sodium Chloride 0.9% 100 ML IVPB SCH (09:00)
[2022-02-26] MEDS: Micafungin 100 MG in Sodium Chloride 0.9% 100 ML IVPB SCH (09:33)
[2022-02-26 12:40] LABS: Potassium 4.2 mmol/L (3.5-5.1)
[2022-02-26] MEDS: Sodium Chloride 0.9% 1,000 ML IV SCH (16:03)
[2022-02-26 16:44] LABS: Vancomycin, Trough 15.1 ug/mL
[2022-02-26] MEDS: Cefepime 2 GM in Sodium Chloride 0.9% 100 ML IVPB SCH (20:10)
[2022-02-27 04:20] LABS: #Eosinphils 0.1 thou/uL (0.0-0.7); #Lymphocytes 0.8 thou/uL (1.20-3.40); #Monocytes 0.5 thou/uL (0.11-0.59); #Neutrophils 5.6 thou/uL (1.40-6.50); %Basophils 0.5 % (0.0-1.0); %Eosinophils 1.7 % (0.0-10.0); %Lymphocytes 11.6 % (21.0-51.0); %Monocytes 6.8 % (0.0-10.0); %Neutrophils 79.4 % (42.0-75.0); Hemoglobin 9.2 g/dL (14.0-18.0); Mean Corpuscular HGB CONC 32.2 g/dL (32.0-36.0); Mean Corpuscular Hemoglobin 34.7 pg (27.0-31.0); Mean Platelet Volume 10.4 fL (7.4-10.4); Platelet Count 156 thou/uL (130-400); RBC Distribution Width 15.4 % (11.5-14.5); Red Blood Cell (RBC) Count 2.64 mill/uL (4.70-6.10); White Blood Cell (WBC) Count 7.1 thou/uL (4.8-10.8)
[2022-02-27 04:43] LABS: Anion Gap 11 mmol/L (10-20); BUN (Urea Nitrogen) 18 mg/dL (8.4-25.7); Calc. Creatinine Clearance 92 mL/min (70-130); Calcium 8.1 mg/dL (7.8-10.44); Carbon Dioxide 23 mmol/L (22-29); Chloride 103 mmol/L (98-107); Glucose 120 mg/dL (70-105); Sodium 133 mmol/L (136-145)
[2022-02-27] MEDS: Propofol 1,000 MG/100 ML VIAL IV PRN ×2 (05:00→23:36)
[2022-02-27] MEDS: VANCOMYCIN 1.25 GM/250 ML BAG 1.25 GM in Premix Bag 1 BAG IVPB SCH ×2 (07:03→17:12)
[2022-02-27] MEDS: Cefepime 2 GM in Sodium Chloride 0.9% 100 ML IVPB SCH ×2 (08:39→20:51)
[2022-02-27] MEDS: Atorvastatin Calcium 40 MG TAB PO SCH (08:42)
[2022-02-27] MEDS: Metoprolol Tartrate 50 MG TAB PO SCH ×2 (08:42→20:54)
[2022-02-27] MEDS: Magnesium Oxide 400 MG TAB PO SCH (08:42)
[2022-02-27] MEDS: Enoxaparin Sodium 40 MG/0.4 ML SYRINGE SC SCH (08:43)
[2022-02-27] MEDS: Ezetimibe 10 MG TAB PO SCH (08:43)
[2022-02-27] MEDS: Senokot S 8.6-50 MG TAB PO SCH ×2 (08:43→20:53)
[2022-02-27] MEDS: Aspirin Chewable 81 MG TAB PER TUBE SCH (08:43)
[2022-02-27] MEDS: Famotidine 20 MG TAB PO SCH ×2 (08:43→20:54)
[2022-02-27] MEDS: Polyethylene Glycol 3350 17 GM Packet PO SCH (08:43)
[2022-02-27] MEDS: fentaNYL Citrate-0.9 % NaCl/PF 100 ML IV SCH (09:32)
[2022-02-27] MEDS: Micafungin 100 MG in Sodium Chloride 0.9% 100 ML IVPB SCH (09:38)
[2022-02-27] MEDS ORDERED: Furosemide 40 MG/4 ML VIAL SLOW IVP SCH (13:30)
[2022-02-27] MEDS: Sodium Chloride 0.9% 1,000 ML IV SCH (13:47)
[2022-02-28] MEDS: fentaNYL Citrate-0.9 % NaCl/PF 100 ML IV SCH (03:24)
[2022-02-28 03:55] LABS: #Eosinphils 0.2 thou/uL (0.0-0.7); #Lymphocytes 0.9 thou/uL (1.20-3.40); #Monocytes 0.5 thou/uL (0.11-0.59); #Neutrophils 4.3 thou/uL (1.40-6.50); %Basophils 0.4 % (0.0-1.0); %Eosinophils 3.5 % (0.0-10.0); %Lymphocytes 14.9 % (21.0-51.0); %Monocytes 8.7 % (0.0-10.0); %Neutrophils 72.5 % (42.0-75.0); Hemoglobin 9.2 g/dL (14.0-18.0); Mean Corpuscular HGB CONC 32.8 g/dL (32.0-36.0); Mean Corpuscular Hemoglobin 35.3 pg (27.0-31.0); Mean Platelet Volume 10.3 fL (7.4-10.4); Platelet Count 193 thou/uL (130-400); RBC Distribution Width 15.6 % (11.5-14.5); Red Blood Cell (RBC) Count 2.61 mill/uL (4.70-6.10); White Blood Cell (WBC) Count 5.9 thou/uL (4.8-10.8)
[2022-02-28 04:13] LABS: Anion Gap 12 mmol/L (10-20); BUN (Urea Nitrogen) 15 mg/dL (8.4-25.7); Calc. Creatinine Clearance 110 mL/min (70-130); Calcium 7.3 mg/dL (7.8-10.44); Carbon Dioxide 22 mmol/L (22-29); Chloride 108 mmol/L (98-107); Glucose 97 mg/dL (70-105); Potassium 3.7 mmol/L (3.5-5.1); Sodium 138 mmol/L (136-145)
[2022-02-28] MEDS ORDERED: Racepinephrine 2.25% 0.5 ML NEB ONE (05:06)
[2022-02-28] MEDS: VANCOMYCIN 1.25 GM/250 ML BAG 1.25 GM in Premix Bag 1 BAG IVPB SCH (05:45)
[2022-02-28] MEDS: Cefepime 2 GM in Sodium Chloride 0.9% 100 ML IVPB SCH (07:47)
[2022-02-28] MEDS: Scopolamine 1.5 mg/72 hour Patch TD SCH (07:47)
[2022-02-28] MEDS: Micafungin 100 MG in Sodium Chloride 0.9% 100 ML IVPB SCH (07:47)
[2022-02-28] MEDS: Aspirin Chewable 81 MG TAB PER TUBE SCH (07:48)
[2022-02-28] MEDS: Magnesium Oxide 400 MG TAB PO SCH (07:48)
[2022-02-28] MEDS: Ezetimibe 10 MG TAB PO SCH (07:48)
[2022-02-28] MEDS: Famotidine 20 MG TAB PO SCH ×2 (07:48→22:43)
[2022-02-28] MEDS: Atorvastatin Calcium 40 MG TAB PO SCH (07:48)
[2022-02-28] MEDS: Senokot S 8.6-50 MG TAB PO SCH ×2 (07:49→22:43)
[2022-02-28] MEDS: Metoprolol Tartrate 50 MG TAB PO SCH ×2 (07:49→22:44)
[2022-02-28] MEDS: Polyethylene Glycol 3350 17 GM Packet PO SCH (07:49)
[2022-02-28] MEDS: Lorazepam 2 MG/ML VIAL SLOW IVP PRN (07:49)
[2022-02-28] MEDS: Enoxaparin Sodium 40 MG/0.4 ML SYRINGE SC SCH (07:49)
[2022-02-28] MEDS: Sodium Chloride 0.9% 1,000 ML IV SCH (11:53)
[2022-03-01 04:00] LABS: #Monocytes 0.6 thou/uL (0.11-0.59); %Basophils 0.3 % (0.0-1.0); %Eosinophils 0.8 % (0.0-10.0); %Lymphocytes 21.5 % (21.0-51.0); %Monocytes 13.3 % (0.0-10.0); %Neutrophils 64.2 % (42.0-75.0); Hemoglobin 9.8 g/dL (14.0-18.0); Mean Corpuscular HGB CONC 33.4 g/dL (32.0-36.0); Mean Corpuscular Hemoglobin 35.6 pg (27.0-31.0); Mean Platelet Volume 10.5 fL (7.4-10.4); Platelet Count 197 thou/uL (130-400); RBC Distribution Width 15.4 % (11.5-14.5); Red Blood Cell (RBC) Count 2.74 mill/uL (4.70-6.10); White Blood Cell (WBC) Count 4.7 thou/uL (4.8-10.8)
[2022-03-01 06:09] LABS: Anion Gap 12 mmol/L (10-20); BUN (Urea Nitrogen) 12 mg/dL (8.4-25.7); Calc. Creatinine Clearance 84 mL/min (70-130); Calcium 9.1 mg/dL (7.8-10.44); Carbon Dioxide 26 mmol/L (22-29); Chloride 100 mmol/L (98-107); Glucose 116 mg/dL (70-105); Potassium 3.8 mmol/L (3.5-5.1); Sodium 134 mmol/L (136-145)
[2022-03-01] MEDS: Aspirin Chewable 81 MG TAB PER TUBE SCH (08:34)
[2022-03-01] MEDS: Metoprolol Tartrate 50 MG TAB PO SCH ×2 (08:34→21:16)
[2022-03-01] MEDS: Ezetimibe 10 MG TAB PO SCH (08:35)
[2022-03-01] MEDS: Enoxaparin Sodium 40 MG/0.4 ML SYRINGE SC SCH (08:35)
[2022-03-01] MEDS: Metoclopramide HCl 10 MG/2 ML VIAL IVP SCH ×3 (08:35→21:15)
[2022-03-01] MEDS: Famotidine 20 MG TAB PO SCH ×2 (08:35→21:15)
[2022-03-01] MEDS: Atorvastatin Calcium 40 MG TAB PO SCH (08:35)
[2022-03-01] MEDS: Polyethylene Glycol 3350 17 GM Packet PO SCH (08:35)
[2022-03-01] MEDS: Senokot S 8.6-50 MG TAB PO SCH ×2 (08:35→21:15)
[2022-03-01] MEDS: Magnesium Oxide 400 MG TAB PO SCH (08:35)
[2022-03-01] MEDS: Micafungin 100 MG in Sodium Chloride 0.9% 100 ML IVPB SCH (10:05)
[2022-03-01] MEDS: Sodium Chloride 0.9% 1,000 ML IV SCH (14:52)
[2022-03-02 03:35] LABS: #Eosinphils 0.1 thou/uL (0.0-0.7); #Lymphocytes 1.3 thou/uL (1.20-3.40); #Monocytes 0.8 thou/uL (0.11-0.59); #Neutrophils 3.8 thou/uL (1.40-6.50); %Basophils 0.3 % (0.0-1.0); %Eosinophils 1.3 % (0.0-10.0); %Lymphocytes 22.1 % (21.0-51.0); %Monocytes 12.8 % (0.0-10.0); %Neutrophils 63.5 % (42.0-75.0); Hemoglobin 9.4 g/dL (14.0-18.0); Mean Corpuscular HGB CONC 33.4 g/dL (32.0-36.0); Mean Corpuscular Hemoglobin 35.5 pg (27.0-31.0); Mean Platelet Volume 10.1 fL (7.4-10.4); Platelet Count 230 thou/uL (130-400); RBC Distribution Width 15.4 % (11.5-14.5); Red Blood Cell (RBC) Count 2.64 mill/uL (4.70-6.10)
[2022-03-02 03:56] LABS: Anion Gap 13 mmol/L (10-20); BUN (Urea Nitrogen) 11 mg/dL (8.4-25.7); Calc. Creatinine Clearance 70 mL/min (70-130); Calcium 8.9 mg/dL (7.8-10.44); Carbon Dioxide 23 mmol/L (22-29); Chloride 103 mmol/L (98-107); Glucose 115 mg/dL (70-105); Potassium 3.7 mmol/L (3.5-5.1); Sodium 135 mmol/L (136-145)
[2022-03-02] MEDS: Metoclopramide HCl 10 MG/2 ML VIAL IVP SCH ×3 (03:59→15:09)
[2022-03-02] MEDS: Propofol 1,000 MG/100 ML VIAL IV PRN ×2 (04:16→17:18)
[2022-03-02] MEDS: Micafungin 100 MG in Sodium Chloride 0.9% 100 ML IVPB SCH (08:08)
[2022-03-02 08:11] LABS: Actual Bicarbonate (HCO3a) 23.6 mEq/L (22-28); Base Excess (BEa) 1.4 mEq/L (-2.0 to +3.0); CO2 Tension 29.2 mmHg (35.0-45.0); Calcium, Ionized (arterial) 1.14 mmol/L (1.12-1.30); Carboxyhemoglobin (COHb) 0.2 gm% (0.0-3.0); Hemoglobin (Hb) 9.8 g/dL (14.0-18.0); O2 Tension (PaO2), arterial 86.2 mmHg (80.0-100.0); Potassium - ABG Lab 3.85 mmol/L (3.70-5.30); pH, Arterial 7.53 (7.35-7.45)
[2022-03-02 08:12] LABS: Puncture Site RRA
[2022-03-02] MEDS: Enoxaparin Sodium 40 MG/0.4 ML SYRINGE SC SCH (08:34)
[2022-03-02] MEDS: Ezetimibe 10 MG TAB PO SCH (08:35)
[2022-03-02] MEDS: Polyethylene Glycol 3350 17 GM Packet PO SCH (08:35)
[2022-03-02] MEDS: Magnesium Oxide 400 MG TAB PO SCH (08:35)
[2022-03-02] MEDS: Atorvastatin Calcium 40 MG TAB PO SCH (08:35)
[2022-03-02] MEDS: Aspirin Chewable 81 MG TAB PER TUBE SCH (08:35)
[2022-03-02] MEDS: Metoprolol Tartrate 50 MG TAB PO SCH (08:35)
[2022-03-02] MEDS: Senokot S 8.6-50 MG TAB PO SCH (08:35)
[2022-03-02] MEDS: Famotidine 20 MG TAB PO SCH (08:35)
[2022-03-02 10:42] VITALS: BMI 21.0
[2022-03-02] MEDS: hydrALAZINE 20 MG/ML VIAL SLOW IVP PRN (15:09)
[2022-03-02] MEDS: Acetaminophen 325 MG TAB PO PRN (15:18)
[2022-03-02] MEDS: Sodium Chloride 0.9% 1,000 ML IV SCH (16:16)
[2022-03-02] MEDS: Lorazepam 2 MG/ML VIAL SLOW IVP PRN ×2 (16:18→16:49)
[2022-03-02] MEDS: Morphine 2 MG/ML VIAL SLOW IVP PRN ×2 (16:18→16:47)
[2022-03-02 18:10] VITALS: BP 89/64
[2022-03-02 22:16] VITALS: TEMP 98.1
[2022-03-03] MEDS ORDERED: Sulfameth/Trimethoprim DS 800-160mg TAB PO SCH (09:00)
== END 2022-03-02 18:40 | DRG 3 ==
LOC: ERS 20:42 → EDBD 20:42 → SDC/OP 22:25 → CCU 22:37
PROVIDERS: ADMIT Hospitalist; ATTEND Hospitalist
PROC: 03CH3ZZ Extirpation of Matter from Right Common Carotid Artery, Percutaneous Approach (ICD-10-PCS; principal; 2022-02-11)
PROC: 0BH17EZ Insertion of Endotracheal Airway into Trachea, Via Natural or Artificial Opening (ICD-10-PCS; 2022-02-11)
PROC: 3E03317 Introduction of Other Thrombolytic into Peripheral Vein, Percutaneous Approach (ICD-10-PCS; 2022-02-11)
PROC: 5A1955Z Respiratory Ventilation, Greater than 96 Consecutive Hours (ICD-10-PCS; 2022-02-11)
PROC: 3E033XZ Introduction of Vasopressor into Peripheral Vein, Percutaneous Approach (ICD-10-PCS; 2022-02-11)
PROC: 0D9770Z Drainage of Stomach, Pylorus with Drainage Device, Via Natural or Artificial Opening (ICD-10-PCS; 2022-02-11)
PROC: B3171ZZ Fluoroscopy of Left Internal Carotid Artery using Low Osmolar Contrast (ICD-10-PCS; 2022-02-11)
PROC: 0B110F4 Bypass Trachea to Cutaneous with Tracheostomy Device, Open Approach (ICD-10-PCS; 2022-02-24)
PROC: 0DH63UZ Insertion of Feeding Device into Stomach, Percutaneous Approach (ICD-10-PCS; 2022-02-24)
PROC: 3E0G76Z Introduction of Nutritional Substance into Upper GI, Via Natural or Artificial Opening (ICD-10-PCS; 2022-02-24)
DX: I63.512 Cerebral infarction due to unspecified occlusion or stenosis of left middle cerebral artery (principal); G93.5 Compression of brain; J96.00 Acute respiratory failure, unspecified whether with hypoxia or hypercapnia; G81.91 Hemiplegia, unspecified affecting right dominant side; G93.49 Other encephalopathy; I25.810 Atherosclerosis of coronary artery bypass graft(s) without angina pectoris; E87.2 Acidosis; E46 Unspecified protein-calorie malnutrition; I47.2 Ventricular tachycardia; D62 Acute posthemorrhagic anemia; B20 Human immunodeficiency virus [HIV] disease; Z51.5 Encounter for palliative care; Z66 Do not resuscitate; Z20.822 Contact with and (suspected) exposure to COVID-19; I10 Essential (primary) hypertension; G93.89 Other specified disorders of brain; E78.2 Mixed hyperlipidemia; R13.12 Dysphagia, oropharyngeal phase; I49.3 Ventricular premature depolarization; R11.2 Nausea with vomiting, unspecified; Z78.1 Physical restraint status; Z95.1 Presence of aortocoronary bypass graft; Z79.82 Long term (current) use of aspirin; Z79.899 Other long term (current) drug therapy; Z68.21 Body mass index [BMI] 21.0-21.9, adult; E16.2 Hypoglycemia, unspecified
CPT/HCPCS: 31500; 36415; 36416; 36600; 70450; 70496; 70498; 71045; 74018; 80048; 80053; 80061; 80202; 80307; 82533; 82550; 82553; 82805; 83605; 83690; 83735; 83880; 84443; 84484; 85025; 85048; 85610; 85730; 86361; 86850; 86900; 86901; 87040; 87149; 87186; 87536; 93005; 93010; 93306; 93970; 94002; 94003; 94640; 95712; 95819; 95957; 96374; 96375; C1887; J0360; J0692; J1200; J1644; J1650; J1940; J1956; J2060; J2248; J2250; J2270; J2543; J2704; J2765; J2930; J2997; J3010; J3370; J3475; J3480; J3490; J7050; J7070; Q9967; S0020; S0028; U0002; U0003; U0005